=== PATIENT | female | born 1960 | race Hispanic/Latino ===

== ENCOUNTER 2016-11-05 20:33 | Emergency (ER) | payer OTHER ==
[~2016-11-05] VITALS: Ht 160 cm; Wt 75.8 kg
[2016-11-06 00:04] VITALS: BP 116/76
[2016-11-06] MEDS ORDERED: BLOOD PRESSURE CUFF (00:15)
[2016-11-06] MEDS ORDERED: [UNRECOGNIZED DRUG - SUPPLY] (00:15)
--- NOTE | 2016-11-06 00:16 | ED GENERAL ADULT ---
History of Present Illness General Chief Complaint: General Adult Stated Complaint: LOW BS AND LOW BP Source: patient Exam Limitations: no limitations Vital Signs & Intake/Output Vital Signs & Intake/Output Vital Signs Date Time Temp Pulse Resp B/P B/P Pulse O2 O2 Flow FiO2 Mean Ox Delivery Rate 11/06 0004 97.2 72 16 116/76 100 11/05 2054 97.6 62 16 116/74 98 Room Air ED Intake and Output 11/06 0000 11/05 1200 Intake Total Output Total Balance Patient 167 lb Weight Weight Estimated Measurement Method Allergies Coded Allergies: No Known Allergies (11/05/16) Reconcile Medications [Blood Pressure Cuff] HTN [Freestyle test strip] Diabetes Triage Note: RECEIVED 56 YO FEMALE SENT BY [facility] WITH REPORT OF LOW B.S.AND LOW B/P B.S. WAS 81, IN TRIAGE IT IS 85. B/P WAS 101/?. IN TRIAGE IT IS 116/74. PT IS A NIDDM NOT ON ANY MEDICATIONS. PT REPORTS HEAD IS SPINNING AND H/A. Triage Nurses Notes Reviewed? yes Onset: Afternoon Duration: hour(s):, better Timing: recent history Injury Environment: home Severity: moderate Modifying Factors: Improves With: eating, rest. LMP (ages 10-50): post menopausal : No Patient currently breastfeeds: No HPI: Patient presents with symptoms of low blood sugar and hypertension that she describes as feeling dizzy week diaphoretic now improved after eating. She denies fever chills nausea vomiting diarrhea abdominal pain chest pain cough shortness of breath headache dysuria rash bleeding. Past History Travel History Traveled to [place] past 21 day No Medical History Any Pertinent Medical History? see below for history Neurological: NONE EENT: NONE Cardiovascular: hypertension Respiratory: obstructive sleep apnea Gastrointestinal: GASTRIC BYPASS Hepatic: NONE Renal: NONE Musculoskeletal: NONE Psychiatric: NONE Endocrine: diabetes Blood Disorders: NONE Cancer(s): NONE Surgical History Surgical History: non-contributory Psychosocial History What is your primary language Scottish Tobacco Use: Never used Family History Hx Contributory? No Review of Systems Review of Systems Constitutional: Reports: see HPI, malaise. EENTM: Reports: no symptoms. Respiratory: Reports: no symptoms. Cardiovascular: Reports: no symptoms. GI: Reports: no symptoms. Genitourinary: Reports: no symptoms. Musculoskeletal: Reports: no symptoms. Skin: Reports: no symptoms. Neurological/Psychological: Reports: see HPI. Hematologic/Endocrine: Reports: no symptoms. Immunologic/Allergic: Reports: no symptoms. All Other Systems: Reviewed and Negative Physical Exam Physical Exam General Appearance: well developed/nourished, alert, awake, anxious, obese Head: atraumatic, normal appearance Eyes: Bilateral: normal appearance, PERRL, EOMI. Ears, Nose, Throat: normal pharynx, normal ENT inspection, hearing grossly normal Neck: normal inspection, supple, full range of motion, no midline tenderness Respiratory: normal breath sounds, chest non-tender, no respiratory distress, quiet respiration, lungs clear Cardiovascular: regular rate/rhythm, normal peripheral pulses, norml femoral pulses equa Peripheral Pulses: 4+ carotid (R), 4+ carotid (L) Gastrointestinal: normal bowel sounds, soft, non-tender, no organomegaly Back: normal inspection, normal range of motion Extremities: normal inspection, normal capillary refill, normal range of motion, no edema Neurologic/Psych: no motor/sensory deficits, awake, alert, oriented x 3, normal gait, normal mood/affect, employee development specialist II-XII nml as tested Reflexes: 2+: bicep (R), bicep (L). Skin: intact, normal color, warm/dry Lymphatic: no anterior cervical eris Core Measures ACS in differential dx? No CVA/TIA Diagnosis: No Severe Sepsis Present: No Septic Shock Present: No Progress Differential Diagnoses I considered the following diagnoses in my evaluation of the patient: Hypoglycemia hypertension Plan of Care: Orders Procedure Date/time Status Add-on Test (ER Only) 11/06 001 Active CULTURE,URINE 11/05 2254 Active URINALYSIS 11/05 2254 Complete Laboratory Tests 11/05/162256: Urine Color STRAW, Urine Clarity CLEAR, Urine pH 6.0, Ur Specific [place] 1.020, Urine Protein NEG, Urine Ketones NEG, Urine Nitrite NEG, Urine Bilirubin NEG, Urine Urobilinogen 0.2, Ur Leukocyte Esterase MOD H, Ur Microscopic SEDIMENT EXAMINED, Urine RBC RARE, Urine WBC 10-15 H, Ur Epithelial Cells MOD H, Urine Bacteria MOD H, Urine Hemoglobin NEG, Urine Glucose NEG Microbiology 11/05 2254 URINE ROUT: Urine Culture - RECD Initial ED EKG: none Departure Departure Time of Disposition: 13 Disposition: HOME OR SELF CARE Condition: Stable Clinical Impression Primary Impression: Hypoglycemia Referrals: UNKNOWN (PCP/Family) Additional Instructions: You should receive a call in 1 week for an appointment with [facility] Departure Forms: Customer Survey General Discharge Information Prescriptions: Current Visit Scripts [Freestyle test strip] #1 BOX Ref 1 [Blood Pressure Cuff] #1 Critical Care Note Critical Care Note Critical Care Time: non-applicable
== END 2016-11-06 00:39 ==
LOC: ERH 20:33
DX: E11.649 Type 2 diabetes mellitus with hypoglycemia without coma (principal); R42 Dizziness and giddiness
CPT/HCPCS: 81001; 87086